=== PATIENT | female | born 1980 | race African-American/Black ===

== ENCOUNTER 2017-02-10 20:38 | Emergency (ER) | payer BC ==
--- NOTE | ~2017-02-10 | CT2 ---
[facility] A Service [facility] RADIOLOGY TEXT RESULTS PATIENT: SAULO PATEL LOCATION: SED : 78 UNIT #: [id number] AGE: [address]: JUAN JOSÉ VELASCO SEX: F ORDER DR: [id number] [place] [id number] E MR#: [id number] Acc #: [id number] NAME: SAULO PATEL : 1980 SEX: F STUDY DATE/TIME: 02/10/2017 22:34 UNIT: SED ROOM: STUDY DESCRIPTION: CT Abd and Pelv W Cont Attending Physician: Juan José Velasco Ordering Physician: Physician Non-Staff Primary Care Physician: Clovis Ponce M.D. MEDICAL IMAGING REPORT This report is preliminary unless electronic signature is present. EXAM CT abdomen and pelvis. INDICATIONS Abdominal pain for 1 hour. Nausea and vomiting. TECHNIQUE CT of the abdomen and pelvis with IV contrast. Coronal and sagittal reconstructions were obtained. This CT exam was performed with one or more of the following radiation dose reduction techniques: Automatic exposure control, adjustment of mA and/or kV according to patient size, and iterative reconstruction. COMPARISON None available. FINDINGS Abdomen: The liver, pancreas, gallbladder, spleen, and adrenal glands are within normal limits. There are numerous small intraparenchymal cysts throughout the kidneys. The bowel is not dilated. The appendix is normal in size. There are occasional colonic diverticula. The abdominal aorta is normal in caliber. There is a small umbilical hernia. Pelvis: No pelvic mass. There is a small volume of free fluid the pelvis. An exophytic lesion off of the uterine fundus probably represents an involuted fibroid. No acute osseous abnormalities. IMPRESSION [facility] A Service [facility] RADIOLOGY TEXT RESULTS PATIENT: SAULO PATEL LOCATION: SED : 78 UNIT #: [id number] AGE: [address]: JUAN JOSÉ VELASCO SEX: F ORDER DR: No acute findings in the abdomen and pelvis to account for the patient's symptoms. Dictated by... Eddie Fraire M.D. THIS IS AN ELECTRONICALLY VERIFIED REPORT Eddie Fraire M.D. at 02/11/2017 10:32 PM Lilliana/jacob TD: 02/11/2017 10:12 JOB #: [id number] MEDICAL IMAGING REPORT Page 1 of 1
[~2017-02-10 20:38] MED LIST: BENADRYL25 M1 PO; BENADRYL25 MG PO; BUPROPION HCL150 M2 PO; CLARITIN10 M3 DOB; CLARITIN10 MG PO; FAMOTIDINE PO; FLEXERIL10 MG PO; LORTAB 5/500 TA1 TA1 PO; NAPROSYN500 MG PO; NO MEDICATIONS; PEPCID AC20 M2 PO; PREDNISONE10 MG PO; TYLENOL #3 PO
[2017-02-10 21:31] LABS: URINE SOURCE CLEAN CATCH
[2017-02-10 21:33] LABS: URINE APPEARANCE CLEAR; URINE BILIRUBIN NEG (NEG); URINE BLOOD 1+ (NEG); URINE COLOR YELLOW; URINE GLUCOSE NEG (NORM); URINE KETONE NEG (NEG); URINE LEUKOCYTE ESTERASE TRACE (NEG); URINE NITRATE NEG (NEG); URINE PROTEIN NEG (NEG); URINE SPECIFIC GRAVITY 1.015 (1.003-1.035)
[2017-02-10 21:35] LABS: MICRO INDICATED? YES
[2017-02-10 21:37] LABS: URINE RBC 0-2 /[HPF] (0-2)
[2017-02-10 21:38] LABS: CULTURE INDICATED? YES; URINE BACTERIA 2+ (NEG); URINE SQUAMOUS EPITHELIAL CELL OCCAS /[HPF]; URINE TRANSITIONAL EPI CELLS FEW /[HPF]
[2017-02-10 21:47] LABS: BASOPHIL% 0.7 % (0-2.5); DIFF IND NO; EOSINOPHIL# 0.2 X10e3 (0-0.7); EOSINOPHIL% 2.4 % (0.0-7.0); HEMATOCRIT 37.8 % (35.0-45.0); LYMPHOCYTE# 2.5 X10e3 (1.0-3.5); LYMPHOCYTE% 32.5 % (17.0-45.0); MEAN CELL VOLUME 98.4 FL (83-96); MEAN CORPUSCULAR HEMOGLOBIN 33.9 PG (28-34); MEAN CORPUSCULAR HGB CONC 34.5 g/dL (30-36); MEAN PLATELET VOLUME 7.6 FL (6.5-11.5); MONOCYTE# 0.5 X10e3 (0-1.0); MONOCYTE% 7.2 % (3.0-12.0); NEUTROPHIL# 4.3 X10e3 (1.5-7.1); NEUTROPHIL% 57.2 % (40-75); PLATELET COUNT 239 X10e3 (140-420); RED BLOOD COUNT 3.84 X10e (3.90-5.30); RED CELL DISTRIBUTION WIDTH 15.3 % (11.0-15.5); WHITE BLOOD COUNT 7.6 X10e3 (4.0-10.5)
[2017-02-10 22:02] LABS: ALBUMIN SERUM 4.9 g/dL (3.5-5.0); ALKALINE PHOSPHATASE 59 U/L (32-92); ALT (SGPT) 29 U/L (10-40); AMYLASE 18 U/L (0-46); AST (SGOT) 23 U/L (10-42); BILIRUBIN,TOTAL 0.8 mg/dL (0.2-2.0); BLOOD UREA NITROGEN 11 mg/dL (9-23); BUN/CREATININE RATIO 15.71; CALCIUM SERUM 9.4 mg/dL (8.4-10.2); CARBON DIOXIDE 22 mmol/L (22-31); CHLORIDE 108 mmol/L (100-111); CREATININE SERUM 0.7 mg/dL (0.6-1.4); GLOM FILT RATE Estimated 128.3 mL/min (>60); GLUCOSE FASTING 102 mg/dL (70-110); LIPASE 28 U/L (22-51); POTASSIUM 3.3 mmol/L (3.5-5.1); PROTEIN TOTAL SERUM 7.5 g/dL (6.0-8.3); SODIUM 139 mmol/L (135-145)
[2017-02-10 22:12] LABS: BILIRUBIN, DIRECT <0.1 mg/dL (0.0-0.2); BILIRUBIN,INDIRECT 0.7 mg/dL (0.0-0.9)
== END 2017-02-10 23:22 | disposition home or self-care (01) ==
LOC: SED 20:38
PROVIDERS: Nurse Practitioner
DX: K52.9 Noninfective gastroenteritis and colitis, unspecified (principal); N39.0 Urinary tract infection, site not specified; I51.9 Heart disease, unspecified; R03.0 Elevated blood-pressure reading, without diagnosis of hypertension; J45.909 Unspecified asthma, uncomplicated; Z79.899 Other long term (current) drug therapy
CPT/HCPCS: 36415; 74177; 80048; 80076; 81003; 82150; 83690; 84703; 85025; 87086; 87088; 87186; 96374; 96375; 99284; J0696; J2270; J2405; J2550; Q9967